=== PATIENT | female | born 1975 | race Asian ===

== ENCOUNTER 2024-03-17 16:14 | Emergency (ER) | payer OTHER ==
[2024-03-17 16:34] VITALS: BP 121/74; PULSE 80; RESP 18; TEMP 97.6; BMI 20.5
[2024-03-17] MEDS ORDERED: DIPHTH,PERTUSS(ACELL),TET 0.5 ML DISP.SYRIN IM ONE (17:08)
[2024-03-17] MEDS: DIPHTH,PERTUSS(ACELL),TET 0.5 ML DISP.SYRIN IM ONE (17:13)
== END 2024-03-17 17:15 | disposition home or self-care (01) ==
LOC: JERFT 16:14
PROC: 3E0234Z Introduction of Serum, Toxoid and Vaccine into Muscle, Percutaneous Approach (ICD-10-PCS; principal; 2024-03-17)
DX: S61.451A Open bite of right hand, initial encounter (principal); W55.01XA Bitten by cat, initial encounter; Z23 Encounter for immunization
CPT/HCPCS: 90715; 99284-25